=== PATIENT | female | born 1945 | race Caucasian/White ===

== ENCOUNTER → 2016-11-07 | Outpatient (CLI) | payer MEDICARE ==
--- NOTE | 2016-11-07 11:24 | USB ---
Reason for exam: additional evaluation requested from abnormal screening. History: Patient is postmenopausal and has history of other cancer at age 56. Family history of breast cancer in paternal cousin at age 58, breast cancer in maternal cousin at age 58, breast cancer in maternal aunt, and breast cancer in paternal aunt at age 60. Took estrogen for 3 years beginning at age 46. Physical Findings: Nurse did not find any significant physical abnormalities on exam. US Breast Workup RT Right breast ultrasound including all four quadrants, the retroareolar region and axilla demonstrates no cystic or solid lesion seen. Dense tissue noted. These results were verbally communicated with the patient and result sheet given to the patient on 11/07/16. ASSESSMENT: Negative, BI-RAD 1 RECOMMENDATION: Return to routine screening mammogram schedule for both breasts.
== END | disposition home or self-care (01) ==
LOC: RADUSWWP 09:52
PROVIDERS: ATTEND Internal Medicine Geriatric Medicine
DX: R92.8 Other abnormal and inconclusive findings on diagnostic imaging of breast (principal)

== ENCOUNTER → 2017-11-20 | Outpatient (CLI) | payer MEDICARE ==
--- NOTE | 2017-11-22 08:03 | MM ---
Reason for exam: screening (asymptomatic). Last mammogram was performed 1 year and 1 month ago. History: Patient is postmenopausal and has history of other cancer at age 56. Family history of breast cancer in paternal cousin at age 58, breast cancer in maternal cousin at age 58, breast cancer in maternal aunt, and breast cancer in paternal aunt at age 60. Took estrogen for 3 years beginning at age 46. Physical Findings: A clinical breast exam by your physician is recommended on an annual basis and results should be correlated with mammographic findings. MG 3D Screening Mammo W/Cad Bilateral CC and MLO view(s) were taken. Prior study comparison: November 07, 2016, right breast US breast workup RT. October 30, 2016, bilateral MG 3d screening mammo w/cad. October 17, 2015, bilateral MG screening mammo w CAD. August 06, 2013, bilateral digital screening mammo w/CAD. December 12, 2011, bilateral digital screening mammo w/CAD. The breast tissue is heterogeneously dense. This may lower the sensitivity of mammography. Stable asymmetric density posterior central right breast MLO view. No significant changes when compared with prior studies. ASSESSMENT: Negative, BI-RAD 1 RECOMMENDATION: Routine screening mammogram of both breasts in 1 year.
== END | disposition home or self-care (01) ==
LOC: RADMAMWWP 13:58
PROVIDERS: ATTEND Internal Medicine Geriatric Medicine
DX: Z12.31 Encounter for screening mammogram for malignant neoplasm of breast (principal)
CPT/HCPCS: 77063; 77067

== ENCOUNTER → 2019-11-24 | Outpatient (CLI) | payer MEDICARE ==
--- NOTE | 2019-11-24 11:15 | BD ---
EXAMINATION TYPE: Axial Bone Density DATE OF EXAM: 11/24/2019 COMPARISON: 2016 CLINICAL HISTORY: Postmenopausal female with history of osteoporosis Height: 62 inches Weight: 149 FRAX RISK QUESTIONS: Alcohol (3 or more units per day): no Family History (Parent hip fracture): no Glucocorticoids (More than 3mos): no (Ex: prednisone, prednisolone, methylprednisolone, dexamethasone, and hydrocortisone). History of Fracture in Adulthood: yes Secondary Osteoporosis: 1. Type 1 Diabetes: no 2. Hyperthyroidism: no 3. Menopause before 45: no 4. Malnutrition: no 5. Chronic liver disease: no Rheumatoid Arthritis: no Current Tobacco Use: no RISK FACTORS HISTORY OF: Family History of Osteoporosis: unknown Active: yes Diet low in dairy products/other sources of calcium: yes Postmenopausal woman: yes Take estrogen and/or progesterone medications: not now How lon-49 Lost more than 2 inches in height since high school: no Frequent falls: no Poor Health: no Hyperparathyroidism: no Adrenal Insufficiency: no MEDICATIONS: Prednisone or other steroids: no Thyroid Medications: no Osteoporosis Medications: no Additional Medications: calcium/vitamin D, cholesterol med ; joint supplements Additional History: bilateral knee replacements; tethered spinal cord EXAM MEASUREMENTS: Bone mineral densitometry was performed using the [employer]. Bone mineral density as measured about the Lumbar spine is: ----- L1-L4(G/cm2): 1.019 T Score Values are as follows: ----- L2: -1.4 ----- L3: -1.3 ----- L4: -1.4 ----- L1-L4: -1.3 Bone mineral density has: Increased 0.7% since study of: 10/30/2016 Bone mineral density about the R hip (g/cm2): 0.912 Bone mineral density about the L hip (g/cm2): 0.849 T Score values are as follows: -----R Neck: -0.9 -----L Neck: -1.4 -----R Total: -0.8 -----L Total: -0.6 Bone mineral density has: Decreased -0.5% since study of: 10/30/2016 IMPRESSION: Osteopenia (T Score between -2.5 and -1) redemonstrated femoral neck level left hip and overall in th e low back. Bone density fairly stable from prior. There remains slightly increased risk of fracture and the patient may be considered for treatment. Re-Screen 2-5 years. NOTE: T-SCORE=SD OF THE YOUNG ADULT MEAN.
--- NOTE | 2019-11-25 09:53 | MM ---
Reason for exam: screening (asymptomatic). Last mammogram was performed 1 year ago. History: Patient is postmenopausal and has history of other cancer at age 56. Family history of breast cancer in paternal cousin at age 58, breast cancer in maternal cousin at age 58, breast cancer in maternal aunt, and breast cancer in paternal aunt at age 60. Took estrogen for 3 years beginning at age 46. Physical Findings: A clinical breast exam by your physician is recommended on an annual basis and results should be correlated with mammographic findings. MG 3D Screening Mammo W/Cad Bilateral CC and MLO view(s) were taken. Prior study comparison: November 21, 2018, bilateral MG 3d screening mammo w/cad. November 20, 2017, bilateral MG 3d screening mammo w/cad. The breast tissue is heterogeneously dense. This may lower the sensitivity of mammography. Benign appearing bilateral calcifications. No significant changes when compared with prior studies. ASSESSMENT: Benign, BI-RAD 2 RECOMMENDATION: Routine screening mammogram of both breasts in 1 year.
== END | disposition home or self-care (01) ==
LOC: RADMAMWWP 09:54
PROVIDERS: ATTEND Internal Medicine Geriatric Medicine
DX: Z12.31 Encounter for screening mammogram for malignant neoplasm of breast (principal); M85.80 Other specified disorders of bone density and structure, unspecified site
CPT/HCPCS: 77063; 77067; 77080

== ENCOUNTER → 2019-12-12 | Outpatient (CLI) | payer MEDICARE ==
--- NOTE | 2019-12-14 10:52 | CT ---
EXAMINATION TYPE: CT abdomen wo/w con DATE OF EXAM: 12/12/2019 COMPARISON: None INDICATION: Pancreatic cancer DLP: 744.20 mGycm, Automated exposure control for dose reduction was used. CONTRAST: 120 mL of Isovue 370. Study performed without Oral Contrast TECHNIQUE: Axial images were obtained from above the diaphragm to the iliac wings in the axial plane at 5 mm thick sections. Reconstructed images are reviewed on the computer in the coronal plane. Mares creas protocol was utilized with noncontrast and postcontrast and delayed imaging. FINDINGS: Limited CT sections are obtained the lung bases. The lung bases are clear. No suspicious pleural ef fusions are evident. CT ABDOMEN: Liver: There is a 1.1 cm area which is hypointense on precontrast imaging has some rapid enhancement in the posterior right upper lobe of the liver. This has an atypical enhancement pattern for hemangio ma. Series 11 image 32, series 8 image 44. Consider MRI liver with contrast to evaluate for possible metastasis. Liver otherwise appears unremarkable. Spleen: Normal Pancreas: No suspicious hypoechoic or abnormal enhancing lesions within the pancreas is evident. No p ancreatic duct dilatation or cut off sign is evident. No suspicious dilated common bile duct is evide nt. MRI may be more sensitive for evaluation. Adrenal glands: The adrenal glands are normal. Gallbladder: Normal Kidneys: No masses are evident. No hydronephrosis is present. No cysts are present. Delayed images were obtained through the kidneys, which remain unremarkable. Aorta: Vascular calcification is within the aorta. Inferior vena cava: Normal. Bowel: Loops of bowel within the abdomen and upper pelvis are normal. Loops of bowel which lack o ral contrast limiting their evaluation. Appendix: Normal as visualized. IMPRESSIONS: 1. Patient's reported pancreatic cancer is not identified on the current exam. If there are outside comparison films these may be useful. MRI may be more sensitive for evaluation. 2. Abnormal 1.4 cm enhancement in the posterior upper right lobe liver. Additional evaluation with co ntrast MRI is recommended.
== END | disposition home or self-care (01) ==
LOC: RADCTMAIN 12:49
PROVIDERS: ATTEND Internal Medicine Geriatric Medicine
DX: R93.2 Abnormal findings on diagnostic imaging of liver and biliary tract (principal)
CPT/HCPCS: 74170; Q9967

== ENCOUNTER → 2020-01-13 | Outpatient (CLI) | payer MEDICARE ==
--- NOTE | 2020-01-13 09:52 | US ---
EXAMINATION TYPE: US liver DATE OF EXAM: 01/13/2020 COMPARISON: CT abdomen pelvis dated 12/12/2019 CLINICAL HISTORY: R93.2 ABN FINDINGS ON DIAGNOSTIC IMAGES OF LIVER. 1.4cm lesion noted on recent CT w ithin liver EXAM MEASUREMENTS: Liver Length: 12.0 cm Gallbladder Wall: 0.2 cm CBD: 0.4 cm Right Kidney: 9.4 x 4.5 x 5.1 cm Pancreas: wnl as visualized. Liver: 1.7cm right posterior lobe hyperechoic lesion, possible hemangioma correlating with the CT of 12/12/2019 . Gallbladder: wnl Evidence for sonographic Mackey's sign: no CBD: wnl Right Kidney: Obscuration of the lower pole by overlying bowel gas, otherwise unremarkable. IMPRESSION: Together CT findings on the exam of 12/12/2019 and sonographic findings on today's exam fav or a 1.7 cm benign hepatic hemangioma.
== END | disposition home or self-care (01) ==
LOC: RADUSWWP 09:12
PROVIDERS: ATTEND Internal Medicine Geriatric Medicine
DX: R93.2 Abnormal findings on diagnostic imaging of liver and biliary tract (principal)
CPT/HCPCS: 76705

== ENCOUNTER → 2021-02-23 | Outpatient (CLI) | payer MEDICARE ==
--- NOTE | 2021-02-27 13:34 | MM ---
Reason for exam: screening (asymptomatic). Last mammogram was performed 1 year and 3 months ago. History: Patient is postmenopausal and has history of other cancer at age 56. Family history of breast cancer in paternal cousin at age 58, breast cancer in maternal cousin at age 58, breast cancer in maternal aunt, and breast cancer in paternal aunt at age 60. Took estrogen for 3 years beginning at age 46. Physical Findings: A clinical breast exam by your physician is recommended on an annual basis and results should be correlated with mammographic findings. MG 3D Screening Mammo W/Cad Bilateral CC and MLO view(s) were taken. Prior study comparison: November 24, 2019, bilateral MG 3d screening mammo w/cad. November 21, 2018, bilateral MG 3d screening mammo w/cad. The breast tissue is heterogeneously dense. This may lower the sensitivity of mammography. Stable benign calcifications. There is no discrete abnormality. No significant changes when compared with prior studies. ASSESSMENT: Benign, BI-RAD 2 RECOMMENDATION: Routine screening mammogram of both breasts in 1 year.
== END | disposition home or self-care (01) ==
LOC: RADMAMWWP 10:09
PROVIDERS: ATTEND Internal Medicine Geriatric Medicine
DX: Z12.31 Encounter for screening mammogram for malignant neoplasm of breast (principal); Z80.3 Family history of malignant neoplasm of breast; Z78.0 Asymptomatic menopausal state
CPT/HCPCS: 77063; 77067

== ENCOUNTER → 2022-02-26 | Outpatient (CLI) | payer MEDICARE ==
--- NOTE | 2022-02-27 11:25 | MM ---
Reason for exam: screening (asymptomatic). Last mammogram was performed 1 year ago. History: Patient is postmenopausal and has history of other cancer at age 56. Family history of breast cancer in paternal cousin at age 58, breast cancer in maternal cousin at age 58, breast cancer in maternal aunt, and breast cancer in paternal aunt at age 60. Took estrogen for 3 years beginning at age 46. Physical Findings: A clinical breast exam by your physician is recommended on an annual basis and results should be correlated with mammographic findings. MG 3D Screening Mammo W/Cad Bilateral CC and MLO view(s) were taken. Prior study comparison: February 23, 2021, bilateral MG 3d screening mammo w/cad. November 24, 2019, bilateral MG 3d screening mammo w/cad. The breast tissue is heterogeneously dense. This may lower the sensitivity of mammography. There are benign appearing round, dystrophic calcifications bilaterally. There is no discrete abnormality. ASSESSMENT: Benign, BI-RAD 2 RECOMMENDATION: Routine screening mammogram of both breasts in 1 year.
== END | disposition home or self-care (01) ==
LOC: RADMAMWWP 12:18
PROVIDERS: ATTEND Internal Medicine Geriatric Medicine
DX: Z12.31 Encounter for screening mammogram for malignant neoplasm of breast (principal)
CPT/HCPCS: 77063; 77067

== ENCOUNTER → 2023-02-27 | Outpatient (CLI) | payer MEDICARE ==
--- NOTE | 2023-02-28 09:06 | MM ---
Reason for Exam: Screening (asymptomatic). Last screening mammogram was performed 12 month(s) ago. Patient History: Menarche at age 13. First Full-Term at age 27. Postmenopausal. Patient has history of breast feeding. Estrogen for 3 years from age 46 until age 49. Paternal cousin had breast cancer, age 58. Maternal cousin had breast cancer, age 58. Paternal aunt had breast cancer, age 60. Maternal aunt had breast cancer. Maternal cousin had ovarian cancer at or over age 50. Risk Values: Vero 5 year model risk: 2.0%. NCI Lifetime model risk: 4.0%. Prior Study Comparison: 10/30/2016 Bilateral Screening Mammogram, [facility]. 11/20/2017 Bilateral Screening Mammogram, [facility]. 11/21/2018 Bilateral Screening Mammogram, [facility]. 11/24/2019 Bilateral Screening Mammogram, [facility]. 02/23/2021 Bilateral Screening Mammogram, [facility]. 02/26/2022 Bilateral Screening Mammogram, [facility]. Tissue Density: The breast tissue is heterogeneously dense. This may lower the sensitivity of mammography. Findings: Analyzed By CAD. There is no suspicious group of microcalcifications or new suspicious mass in either breast. Overall Assessment: Benign, BI-RAD 2 Management: Screening Mammogram of both breasts in 1 year. A clinical breast exam by your physician is recommended on an annual basis and results should be correlated with mammographic findings. Electronically signed and approved by: Ghulam Campbell M.D. Radiologis
--- NOTE | 2023-02-28 19:27 | BD ---
EXAMINATION TYPE: Axial Bone Density DATE OF EXAM: 02/27/2023 CLINICAL HISTORY: 77 years old Female. ICD-10 CODE: M81.0 OSTEOPOROSIS Height: 61 in Weight: 141 lbs FRAX RISK QUESTIONS: History of Fracture in Adulthood: rt tib/fib fx age 36 Active: yes Diet low in dairy products/other sources of calcium: yes Postmenopausal woman: age 51 Take estrogen and/or progesterone medications: not now How lon years MEDICATIONS: Additional Medications: glucosamine chondroitin, calcium, vit d, statin, coqu10, sleeping pill EXAM MEASUREMENTS: Bone mineral densitometry was performed using the [employer]. Bone mineral density as measured about the Lumbar spine is: ----- L1-L4(G/cm2): 1.031 T Score Values are as follows: ----- L1: -1.0 ----- L2: -1.3 ----- L3: -1.6 ----- L4: -1.2 ----- L1-L4: -1.2 Z Score Values are as follows: ----- L1: 0.8 ----- L2: 0.5 ----- L3: 0.2 ----- L4: 0.6 ----- L1-L4: 0.6 Bone mineral density has: Increased 1.2% since study of: 11/24/2019 Bone mineral density about the R hip (g/cm2): 0.865 Bone mineral density about the L hip (g/cm2): 0.891 T Score values are as follows: -----R Neck: -1.5 -----L Neck: -1.6 -----R Total: -1.1 -----L Total: -0.9 Z Score values are as follows: -----R Neck: 0.5 -----L Neck: 0.4 -----R Total: 0.7 -----L Total: 0.9 Bone mineral density has: Decreased -4.7% since study of: 11/24/2019 FRAX%s: The graph provided illustrates a 18.5% chance for a major osteoporotic fx and a 3.8% chance f or the hips probability for fx in 10 years time. IMPRESSION: Osteopenia (T Score between -2.5 and -1). There is slightly increased risk of fracture and the patient may be considered for treatment. Re-Screen 2-5 years. NOTE: T-SCORE=SD OF THE YOUNG ADULT MEAN.
== END | disposition home or self-care (01) ==
LOC: RADMAMWWP 11:12
PROVIDERS: ATTEND Internal Medicine Geriatric Medicine
DX: Z12.31 Encounter for screening mammogram for malignant neoplasm of breast (principal); M81.0 Age-related osteoporosis without current pathological fracture; M85.89 Other specified disorders of bone density and structure, multiple sites; Z78.0 Asymptomatic menopausal state; Z80.3 Family history of malignant neoplasm of breast
CPT/HCPCS: 77063; 77067; 77080

== ENCOUNTER → 2024-03-13 | Outpatient (CLI) | payer MEDICARE ==
--- NOTE | 2024-03-16 15:10 | MM ---
Reason for Exam: Screening (asymptomatic). Last mammogram was performed 1 year(s) and 1 month(s) ago. Patient History: Menarche at age 13. First Full-Term at age 27. Postmenopausal. Patient has history of breast feeding. Estrogen for 3 years from age 46 until age 49. Paternal cousin had breast cancer, age 58. Maternal cousin had breast cancer, age 58. Paternal aunt had breast cancer, age 60. Maternal aunt had breast cancer. Maternal cousin had ovarian cancer at or over age 50. Risk Values: Vreo 5 year model risk: 1.9%. NCI Lifetime model risk: 3.7%. Prior Study Comparison: 02/23/2021 Bilateral Screening Mammogram, [facility]. 02/26/2022 Bilateral Screening Mammogram, [facility]. 02/27/2023 Bilateral MG 3D screening mammo w/cad, [facility]. Tissue Density: The breasts are heterogeneously dense, which may obscure small masses. Findings: Analyzed By CAD. Right breast: There is no suspicious group of microcalcifications or new suspicious mass. Left breast: There is no suspicious group of microcalcifications or new suspicious mass. Overall Assessment: Negative, BI-RAD 1 Management: Screening Mammogram of both breasts in [address] [facility] will attempt to contact patient to return for supplemental views and ultrasound if indicated. Patient should continue monthly self-breast exams. A clinical breast exam by your physician is recommended on an annual basis. This exam should not preclude additional follow-up of suspicious palpable abnormalities. Note on Vero scores and lifetime risk: 1. A Vero score greater than 3% is considered moderate risk. If this is the case, consider specialist referral to assess eligibility for a risk reducing agent. 2. If overall lifetime risk for the development of breast cancer is 20% or higher, the patient may qualify for future screening with alternating mammogram and breast MRI. Electronically signed and approved by: Rafael Mccain DO
== END | disposition home or self-care (01) ==
LOC: RADMAMWWP 10:52
PROVIDERS: ATTEND Internal Medicine Geriatric Medicine
DX: Z12.31 Encounter for screening mammogram for malignant neoplasm of breast (principal); Z78.0 Asymptomatic menopausal state; Z80.3 Family history of malignant neoplasm of breast
CPT/HCPCS: 77063; 77067

== ENCOUNTER → 2024-04-15 | Outpatient (CLI) | payer MEDICARE | END | disposition home or self-care (01) | LOC: LABWHC1 12:01 | PROVIDERS: ATTEND Internal Medicine Gastroenterology | DX: R19.7 Diarrhea, unspecified (principal) | CPT/HCPCS: 36415; 85652; 86140 ==

== ENCOUNTER 2025-04-28 06:49 | Inpatient (IN) | payer MEDICARE ==
[2025-04-28 07:40] LABS: Basophils # (A) 0.05 10*3/uL (0.00-0.10); Basophils % (A) 0.4 %; Eosinophils # (A) 0.18 10*3/uL (0.04-0.35); Eosinophils % (A) 1.5 %; HCT 49.2 % (37.2-46.3); HGB 16.3 g/dL (12.0-15.0); Lymphocytes % (A) 12.2 %; MCH 31.1 pg (27.0-32.0); MCHC 33.1 g/dL (32.0-37.0); MCV 93.9 fL (80.0-97.0); Mean Platelet Volume 11.3 fL (9.5-12.2); Monocytes # (A) 0.93 10*3/uL (0.20-1.00); Monocytes % (A) 7.6 %; Neutrophils # (A) 9.57 10*3/uL (1.80-7.70); Neutrophils % (A) 77.8 %; Platelet Count 218 10*3/uL (140-440); RBC 5.24 10*6/uL (4.10-5.20); WBC 12.29 10*3/uL (4.50-10.00)
[2025-04-28 07:51] LABS: ALT 14 U/L (4-34); AST 25 U/L (14-36); African American GFR (CKD) >90 (>60 ml/min/1.73 sqM); Albumin 4.7 g/dL (3.5-5.0); Alkaline Phosphatase 100 U/L (38-126); Anion Gap 9 mmol/L; Blood Urea Nitrogen 20 mg/dL (7-17); Calcium 9.6 mg/dL (8.4-10.2); Carbon Dioxide 24 mmol/L (22-30); Chloride 105 mmol/L (98-107); Glucose 95 mg/dL (74-99); Lipase 102 U/L (23-300); Non-African American GFR(CKD) 79 (>60 ml/min/1.73 sqM); Potassium 4.6 mmol/L (3.5-5.1); Sodium 138 mmol/L (137-145); Total Bilirubin 1.1 mg/dL (0.2-1.3); Total Protein 7.5 g/dL (6.3-8.2)
[2025-04-28 07:54] LABS: Appearance,Urine Clear (Clear); Bilirubin,Urine Negative (Negative); Blood,Urine Negative (Negative); Color,Urine Colorless; Glucose,Urine (UA) Negative (Negative); Ketones,Urine Negative (Negative); Leukocyte Esterase,Urine Negative (Negative); Nitrite,Urine Negative (Negative); Protein,Urine Negative (Negative); Specific Gravity,Urine 1.009 (1.001-1.035); Urobilinogen,Urine <2.0 mg/dL (<2.0)
--- NOTE | 2025-04-28 09:22 | CT ---
EXAMINATION TYPE: CT abdomen pelvis w con DATE OF EXAM: 04/28/2025 8:53 AM COMPARISON: 12/12/2019 CLINICAL INDICATION: Female, 79 years old with history of abd pain; ABD pain TECHNIQUE: CT of the abdomen and pelvis after IV contrast. Delayed images through the kidneys and cor onal/sagittal reconstructions performed. Contrast used:100ML mL of Isovue 300 with IV Contrast, Oral contrast used: without Oral Contrast CT DLP: 715.1 mGycm, Automated exposure control for dose reduction was used. FINDINGS: LOWER CHEST: Calcified pleural plaques visualized right lower lung with some strandy atelectasis. Hea rt upper limits of normal in size. ABDOMEN LIVER: Unremarkable GALLBLADDER AND BILE DUCTS: Unremarkable. PANCREAS: Unremarkable. SPLEEN: Unremarkable. ADRENAL GLANDS: Unremarkable. KIDNEYS AND URETERS: Bilateral renal parapelvic cysts measuring up to 1.8 cm. Symmetric uptake and ex cretion of contrast from both kidneys. A small approximately 1 cm cortical cyst medial left kidney is unchanged. PELVIS BLADDER: No evidence for wall thickening or mass given limitations of exam. REPRODUCTIVE: Uterus anteverted. Both ovaries are visualized. Suspect a couple calcified anterior lef t-sided subserosal fibroids measuring up to 1.1 cm. ABDOMEN & PELVIS STOMACH AND BOWEL: 4.1 cm diverticulum of the third portion of the duodenum projecting towards the pa ncreatic head region. No evidence of bowel obstruction. Mild scattered stool. Normal appendix. There is left-sided colonic diverticulosis. Moderate circumferential thickening with inflammatory pericolon ic fat stranding along the mid sigmoid colon, axial image 57. PERITONEUM/RETROPERITONEUM: No evidence of pneumoperitoneum or free fluid. VASCULATURE: No evidence of aortic aneurysm. MUSCULOSKELETAL: There is prominence of the spinal canal at the level of the sacrum. Partially lumbar ized S1. Moderate to advanced degenerative disc disease lower thoracic and upper lumbar spine. Degene rative grade 1 retrolisthesis T12-L1, L1-L2, L2-L3. LYMPH NODES: No gross evidence for lymphadenopathy. SOFT TISSUE/ABDOMINAL WALL: There is a lesion of the posterior pelvic floor/levator ani musculature m easuring 4.8 cm wide partially cystic component measuring 3.6 cm and a solid appearing component jesus uring 1.7 cm. The exact etiology is unclear. IMPRESSION: 1. Left sided colonic diverticulosis. Exam positive for acute diverticulitis along the mid sigmoid c olon. Associated mild to moderate inflammation. No abscess or free air. 2. Incidental complex cystic mass of the posterior pelvic floor measuring 4.8 cm. 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 Teratoma or associated congenital sacrococcygeal abnormality is not entirely excluded at this time given prominence to the spinal canal at the level of the sacrum. Consider lumbar/sacral MRI for more detailed characterization. Possibility of other masses are not excluded at this time. Co nsider specialist referral for subsequent follow-up. [facility], , 04/28/2025 9:20 AM
[2025-04-28] MEDS ORDERED: NALOXONE 0.4 MG/ML 1 ML VIAL IV PRN (10:03)
[2025-04-28] MEDS ORDERED: ACETAMINOPHEN TAB 325 MG TAB PO PRN (10:03)
[2025-04-28] MEDS ORDERED: ONDANSETRON 4 MG/2 ML VIAL IVP PRN (10:03)
--- NOTE | 2025-04-28 10:03 | ED ---
Abdominal Pain HPI - General Chief Complaint: Abdominal Pain Stated Complaint: Abd pain Time Seen by Provider: 04/28/25 06:57 Source: patient, RN notes reviewed Mode of arrival: ambulatory Limitations: no limitations - History of Present Illness Initial Comments: 79-year-old female presents emergency department complaint of lower abdominal pain. Patient states she has had some soft stools for a while but the pain has been worsening crampy type pain in her lower abdomen. She denies any fevers or chills no chest pain states sometimes the pain becomes unbearable she does have some urinary frequency dysuria denies any melanotic stools no hematochezia. Denies any coffee-ground emesis - Related Data Home Medications Medication Instructions Recorded Confirmed Calcium (Unknown Strength) 1 dose PO DAILY 04/28/25 04/28/25 Dicyclomine [Bentyl] 10 mg PO QID 04/28/25 04/28/25 Temazepam [Restoril] 15 mg PO HS 04/28/25 04/28/25 Zinc (Unknown Strength) 1 dose PO DAILY 04/28/25 04/28/25 Allergies Allergy/AdvReac Type Severity Reaction Status Date / Time No Known Allergies Allergy Verified 04/28/25 09:47 Review of Systems ROS Statement: Those systems with pertinent positive or pertinent negative responses have been documented in the HPI. ROS Other: All systems not noted in ROS Statement are negative. Past Medical History Past Medical History: Hyperlipidemia Past Surgical History: Orthopedic Surgery Additional Past Surgical History / Comment(s): Bilat knee replacement Past Psychological History: No Psychological Hx Reported Smoking Status: Never smoker Past Alcohol Use History: Occasional Past Drug Use History: None Reported General Exam Limitations: no limitations General appearance: alert, in no apparent distress Head exam: Present: atraumatic, normocephalic, normal inspection Respiratory exam: Present: normal lung sounds bilaterally. Absent: respiratory distress, wheezes, rales, rhonchi, stridor Cardiovascular Exam: Present: regular rate, normal rhythm, normal heart sounds. Absent: systolic murmur, diastolic murmur, rubs, gallop, clicks GI/Abdominal exam: Present: soft, tenderness, normal bowel sounds. Absent: distended, guarding, rebound, rigid Back exam: Absent: CVA tenderness (R), CVA tenderness (L) Neurological exam: Present: alert, oriented X3 Skin exam: Present: warm, dry, intact, normal color. Absent: rash Course Vital Signs 04/28/25 04/28/25 06:52 09:32 Temperature 98.1 F Pulse Rate 82 64 Respiratory 18 16 Rate Blood Pressure 138/84 122/77 O2 Sat by Pulse 98 99 Oximetry Medical Decision Making - Medical Decision Making Was pt. sent in by a medical professional or institution (SOLEDAD Richards, MARKETING AND OUTREACH COORDINATOR, urgent care, hospital, or jail...) When possible be specific @ -No Did you speak to anyone other than the patient for history (EMS, parent, family, police, friend...)? What history was obtained from this source @ -No Did you review nursing and triage notes (agree or disagree)? Why? @ -I reviewed and agree with nursing and triage notes Were old charts reviewed (outside hosp., previous admission, EMS record, old EKG, old radiological studies, urgent care reports/EKG's, jail records)? Report findings @ -No old charts were reviewed Differential Diagnosis (chest pain, altered mental status, abdominal pain women, abdominal pain men, vaginal bleeding, weakness, fever, dyspnea, syncope, headache, dizziness, GI bleed, back pain, seizure, CVA, palpatations, mental health, musculoskeletal)? @ -Differential Abdominal Pain Women: Appendicitis, Cholecystitis, diverticulosis, ischemic bowel, pancreatitis, hepatitis, UTI, gastroenteritis, AAA, incarcerated hernia, bowel obstruction, constipation, inflammatory bowel, hepatitis, peptic ulcer disease, splenic infarction, perforated viscus, vulvitis, ovarian torsion, PID, kidney stone, placenta abruption, this is not meant to be an all-inclusive list EKG interpreted by me (3pts min.). @ -None X-rays interpreted by me (1pt min.). @ -None done CT interpreted by me (1pt min.). @ -CT of abdomen pelvis showing evidence of diverticulitis diffuse inflammatory changes no abscess perforation cysts of cystic area recommend MRI U/S interpreted by me (1pt. min.). @ -None done What testing was considered but not performed or refused? (CT, X-rays, U/S, labs)? Why? @ -None What meds were considered but not given or refused? Why? @ -None Did you discuss the management of the patient with other professionals (professionals i.e. Dr., PA, MARKETING AND OUTREACH COORDINATOR, lab, RT, psych nurse, mental health social worker, office manager receptionist, teacher, multisensor intelligence officer, outsole caser)? Give summary @ -[EMH for admission Was smoking cessation discussed for >3mins.? @ -No Was critical care preformed (if so, how long)? @ -No Were there social determinants of health that impacted care today? How? (Home lessness, low income, unemployed, alcoholism, drug addiction, transportation, low edu. Level, literacy, decrease access to med. care, half-way, rehab)? @ -No Was there de-escalation of care discussed even if they declined (Discuss DNR or withdrawal of care, Hospice)? DNR status @ -No What co-morbidities impacted this encounter? (DM, HTN, Smoking, COPD, CAD, Cancer, CVA, ARF, Chemo, Hep., AIDS, mental health diagnosis, sleep apnea, morbid obesity)? @ -None Was patient admitted / discharged? Hospital course, mention meds given and route, prescriptions, significant lab abnormalities, going to OR and other pertinent info. @ -Admitted patient presented for abdominal pain, diverticulitis. Patient be admitted for IV antibiotics, patient's family questing Dr. Gutierrez for consult. Undiagnosed new problem with uncertain prognosis? @ -No Drug Therapy requiring intensive monitoring for toxicity (Heparin, Nitro, Insulin, Cardizem)? @ -No Were any procedures done? @ -No Diagnosis/symptom? @ -Diverticulitis Acute, or Chronic, or Acute on Chronic? @Acute Uncomplicated (without systemic symptoms) or Complicated (systemic symptoms)? @ -Complicated Side effects of treatment? @ -No Exacerbation, Progression, or Severe Exacerbation? @ -No Poses a threat to life or bodily function? How? (Chest pain, [place], [place], pneumonia, PE, COPD, DKA, ARF, appy, cholecystitis, CVA, Diverticulitis, Homicidal, Suicidal, threat to staff... and all critical care pts) @ -No - Lab Data Result diagrams: 04/28/25 07:32 04/28/25 07:32 Lab Results 04/28/25 04/28/25 04/28/25 Range/Units 07:32 07:32 07:32 WBC 12.29 H (4.50-10.00) 10*3/uL RBC 5.24 H (4.10-5.20) 10*6/uL Hgb 16.3 H (12.0-15.0) g/dL Hct 49.2 H (37.2-46.3) % MCV 93.9 (80.0-97.0) fL MCH 31.1 (27.0-32.0) pg MCHC 33.1 (32.0-37.0) g/dL Plt Count 218 (140-440) 10*3/uL MPV 11.3 (9.5-12.2) fL Immature Gran % (Auto) 0.5 % Neutrophils % 77.8 % Lymphocytes % 12.2 % Monocytes % 7.6 % Eosinophils % 1.5 % Basophils % 0.4 % Immature Gran # 0.06 H (0.00-0.04) 10*3/uL Neutrophils # 9.57 H (1.80-7.70) 10*3/uL Lymphocytes # 1.50 (0.90-5.00) 10*3/uL Monocytes # 0.93 (0.20-1.00) 10*3/uL Eosinophils # 0.18 (0.04-0.35) 10*3/uL Basophils # 0.05 (0.00-0.10) 10*3/uL Sodium 138 (137-145) mmol/L Potassium 4.6 (3.5-5.1) mmol/L Chloride 105 (98-107) mmol/L Carbon Dioxide 24 (22-30) mmol/L Anion Gap 9 mmol/L BUN 20 H (7-17) mg/dL Creatinine 0.73 (0.52-1.04) mg/dL Est GFR (CKD-EPI)AfAm >90 (>60 ml/min/1.73 sqM) Est GFR (CKD-EPI)NonAf 79 (>60 ml/min/1.73 sqM) Glucose 95 (74-99) mg/dL Plasma Lactic Acid Aldo 1.1 (0.7-2.0) mmol/L Calcium 9.6 (8.4-10.2) mg/dL Total Bilirubin 1.1 (0.2-1.3) mg/dL AST 25 (14-36) U/L ALT 14 (4-34) U/L Alkaline Phosphatase 100 (38-126) U/L Total Protein 7.5 (6.3-8.2) g/dL Albumin 4.7 (3.5-5.0) g/dL Lipase 102 (23-300) U/L Urine Color Urine Appearance (Clear) Urine pH (5.0-8.0) Ur Specific Franklin (1.001-1.035) Urine Protein (Negative) Urine Glucose (UA) (Negative) Urine Ketones (Negative) Urine Blood (Negative) Urine Nitrite (Negative) Urine Bilirubin (Negative) Urine Urobilinogen (<2.0) mg/dL Ur Leukocyte Esterase (Negative) 04/28/25 Range/Units 07:41 WBC (4.50-10.00) 10*3/uL RBC (4.10-5.20) 10*6/uL Hgb (12.0-15.0) g/dL Hct (37.2-46.3) % MCV (80.0-97.0) fL MCH (27.0-32.0) pg MCHC (32.0-37.0) g/dL Plt Count (140-440) 10*3/uL MPV (9.5-12.2) fL Immature Gran % (Auto) % Neutrophils % % Lymphocytes % % Monocytes % % Eosinophils % % Basophils % % Immature Gran # (0.00-0.04) 10*3/uL Neutrophils # (1.80-7.70) 10*3/uL Lymphocytes # (0.90-5.00) 10*3/uL Monocytes # (0.20-1.00) 10*3/uL Eosinophils # (0.04-0.35) 10*3/uL Basophils # (0.00-0.10) 10*3/uL Sodium (137-145) mmol/L Potassium (3.5-5.1) mmol/L Chloride (98-107) mmol/L Carbon Dioxide (22-30) mmol/L Anion Gap mmol/L BUN (7-17) mg/dL Creatinine (0.52-1.04) mg/dL Est GFR (CKD-EPI)AfAm (>60 ml/min/1.73 sqM) Est GFR (CKD-EPI)NonAf (>60 ml/min/1.73 sqM) Glucose (74-99) mg/dL Plasma Lactic Acid Aldo (0.7-2.0) mmol/L Calcium (8.4-10.2) mg/dL Total Bilirubin (0.2-1.3) mg/dL AST (14-36) U/L ALT (4-34) U/L Alkaline Phosphatase (38-126) U/L Total Protein (6.3-8.2) g/dL Albumin (3.5-5.0) g/dL Lipase (23-300) U/L Urine Color Colorless Urine Appearance Clear (Clear) Urine pH 6.0 (5.0-8.0) Ur Specific Franklin 1.009 (1.001-1.035) Urine Protein Negative (Negative) Urine Glucose (UA) Negative (Negative) Urine Ketones Negative (Negative) Urine Blood Negative (Negative) Urine Nitrite Negative (Negative) Urine Bilirubin Negative (Negative) Urine Urobilinogen <2.0 (<2.0) mg/dL Ur Leukocyte Esterase Negative (Negative) Disposition Clinical Impression: Diverticulitis Disposition: ADMITTED IP TO THIS [facility] Condition: Fair Referrals: Carlos Abarca MD [Primary Care Provider] - 1-2 days Time of Disposition: 10:03
--- NOTE | 2025-04-28 10:11 | P.HPIM ---
History of Present Illness This is a pleasant 79 years old female with no past medical history. Presents because of abdominal pain and diarrhea. Patient states that she has diarrhea for about 1 month however she started having lower abdominal pain which felt like moderate pain in the lower abdomen nonradiating comes and goes. Associated with diarrhea for about 1 month. Patient does not describe it as diarrhea but rather than soft stool. And then she has the symptoms of bloating and gas She denies vomiting but she has low appetite She states that last colonoscopy was more than 10 years ago. Denies smoking alcohol illicit drugs. Patient family requesting Dr. Leo for consult for her colon problem No fever Labs reviewed showing mild leukocytosis of 12.3 rest of labs unremarkable CT of the abdomen pelvis showing left-sided colonic diverticulosis with acute diverticulitis along the mid sigmoid colon. Also there is complex cystic mass in the posterior pelvic floor 4.8 cm. Patient was with antibiotics Zosyn started already in the emergency room Review of Systems Review of systems CONSTITUTIONAL: No fever, no malaise, no fatigue. HEENT: No recent visual problems or hearing problems. Denied any sore throat. CARDIOVASCULAR: No orthopnea, PND, no palpitations, no syncope. PULMONARY: No shortness of breath, no cough, no hemoptysis. GASTROINTESTINAL: no nausea, no vomiting,Normoactive bowel sounds. NEUROLOGICAL: No headaches, no weakness, no numbness. HEMATOLOGICAL: Denies any bleeding or petechiae. GENITOURINARY: Denies any burning micturition, frequency, or urgency. MUSCULOSKELETAL/RHEUMATOLOGICAL: Denies any joint pain, swelling, or any muscle pain. ENDOCRINE: Denies any polyuria or polydipsia. Past Medical History Past Medical History: Hyperlipidemia Past Surgical History: Orthopedic Surgery Additional Past Surgical History / Comment(s): Bilat knee replacement Past Psychological History: No Psychological Hx Reported Smoking Status: Never smoker Past Alcohol Use History: Occasional Past Drug Use History: None Reported Medications and Allergies Home Medications Medication Instructions Recorded Confirmed Type Calcium (Unknown Strength) 1 dose PO DAILY 04/28/25 04/28/25 History Dicyclomine [Bentyl] 10 mg PO QID 04/28/25 04/28/25 History Temazepam [Restoril] 15 mg PO HS 04/28/25 04/28/25 History Zinc (Unknown Strength) 1 dose PO DAILY 04/28/25 04/28/25 History Allergies Allergy/AdvReac Type Severity Reaction Status Date / Time No Known Allergies Allergy Verified 04/28/25 09:47 Physical Exam Vitals: Vital Signs Temp Pulse Resp BP Pulse Ox 04/28/25 09:32 64 16 122/77 99 04/28/25 06:52 98.1 F 82 18 138/84 98 Intake and Output 04/27/25 04/28/25 04/28/25 22:59 06:59 14:59 Other: Weight 68.039 kg GENERAL: The patient is alert and oriented x3, not in any acute distress. Well developed, well nourished. HEENT: Pupils are round and equally reacting to light. EOMI. No scleral icterus. No conjunctival pallor. Normocephalic, atraumatic. No pharyngeal erythema. No thyromegaly. CARDIOVASCULAR: S1 and S2 present. No murmurs, rubs, or gallops. PULMONARY: Chest is clear to auscultation, no wheezing , no crackles. -ABDOMEN: Soft, mild lower abdominal tenderness, nondistended, normoactive bowel sounds. No palpable organomegaly. MUSCULOSKELETAL: No joint swelling or deformity. EXTREMITIES: No cyanosis, clubbing, or pedal edema. NEUROLOGICAL: Gross neurological examination did not reveal any focal deficits. SKIN: No rashes. no petechiae. 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 Continue same treatment. Continue with symptomatic treatment. Resume home medication. Monitor labs and vitals. DVT and GI prophylaxis. Further recommendations as per clinical course of the patient DVT prophylaxis: Subcutaneous heparin GI Prophylaxis: Pepcid PT/OT: Pending Prognosis is guarded
[2025-04-28] MEDS: PIPERACILLIN-TAZOBACTAM 3.375 GM in SODIUM CHLORIDE 0.9% 100 ML IVPB SCH (10:46)
[2025-04-28] MEDS: SODIUM CHLORIDE 0.9% 1,000 ML IV SCH (10:48)
[2025-04-28] MEDS ORDERED: MORPHINE SULFATE 2 MG/ML SYRINGE IVP PRN (20:12)
[2025-04-28] MEDS ORDERED: TEMAZEPAM 15 MG CAP PO PRN (20:12)
[2025-04-28] MEDS: FAMOTIDINE 20 MG/2 ML VIAL IV SCH (21:58)
[2025-04-28] MEDS: HEPARIN SODIUM,PORCINE 5,000 UNIT/ML 1 ML VIAL SQ SCH (21:58)
[2025-04-29 08:02] LABS: Basophils # (A) 0.05 X 10*3/uL (0.00-0.10); Basophils % (A) 0.5 %; Eosinophils # (A) 0.22 X 10*3/uL (0.04-0.35); Eosinophils % (A) 2.1 %; HCT 40.1 % (37.2-46.3); HGB 12.9 g/dL (12.0-15.0); Lymphocytes # (A) 1.54 X 10*3/uL (0.90-5.00); Lymphocytes % (A) 14.5 %; MCH 30.4 pg (27.0-32.0); MCHC 32.2 g/dL (32.0-37.0); MCV 94.6 FL (80.0-97.0); Mean Platelet Volume 11.4 FL (9.5-12.2); Monocytes # (A) 1.01 X 10*3/uL (0.20-1.00); Monocytes % (A) 9.5 %; NRBC Per 100 WBC 0 X 10*3/uL (0.00-0.01); Neutrophils # (A) 7.75 X 10*3/uL (1.80-7.70); Platelet Count 245 X 10*3/uL (140-440); RBC 4.24 X 10*6/uL (4.10-5.20); RDW 13.1 % (11.5-14.5); WBC 10.61 X 10*3/uL (4.50-10.00)
--- NOTE | 2025-04-29 10:26 | P.PN ---
Subjective This is a pleasant 79 years old female with no past medical history. Presents because of abdominal pain and diarrhea. Patient states that she has diarrhea for about 1 month however she started having lower abdominal pain which felt like moderate pain in the lower abdomen nonradiating comes and goes. Associated with diarrhea for about 1 month. Tara clifford does not describe it as diarrhea but rather than soft stool. And then she has the symptoms of bloating and gas She denies vomiting but she has low appetite She states that last colonoscopy was more than 10 years ago. Denies smoking alcohol illicit drugs. Patient family requesting Dr. Leo for consult for her colon problem No fever Labs reviewed showing mild leukocytosis of 12.3 rest of labs unremarkable CT of the abdomen pelvis showing left-sided colonic diverticulosis with acute diverticulitis along the mid sigmoid colon. Also there is complex cystic mass in the posterior pelvic floor 4.8 cm. Patient was with antibiotics Zosyn started already in the emergency room 04/29 Patient doing well today. Her abdominal pain is minimal in the periumbilical area with mild tenderness no guarding Patient is having 2-4 mushy bowel movement daily, she feels better. Able to tolerate liquid diet and no vomiting No other new complaint. Patient still getting IV fluids. Surgery team to evaluate the patient today but she is improving and may be considered for discharge soon once cleared by surgery team Objective - Vital Signs Vital signs: Vital Signs Temp 98.4 F 04/29/25 08:32 Pulse 65 04/29/25 08:32 Resp 20 04/29/25 08:32 BP 146/76 04/29/25 08:32 Pulse Ox 95 04/29/25 08:32 FiO2 - Exam GENERAL: The patient is alert and oriented x3, not in any acute distress. Well developed, well nourished. HEENT: Pupils are round and equally reacting to light. EOMI. No scleral icterus. No conjunctival pallor. Normocephalic, atraumatic. No pharyngeal erythema. No th yromegaly. CARDIOVASCULAR: S1 and S2 present. No murmurs, rubs, or gallops. PULMONARY: Chest is clear to auscultation, no wheezing , no crackles. -ABDOMEN: Soft, mild periumbilical tenderness nondistended, normoactive bowel sounds. No palpable organomegaly. MUSCULOSKELETAL: No joint swelling or deformity. EXTREMITIES: No cyanosis, clubbing, or pedal edema. NEUROLOGICAL: Gross neurological examination did not reveal any focal deficits. SKIN: No rashes. no petechiae. 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 Continue same treatment. Continue with symptomatic treatment. Resume home medication. Monitor labs and vitals. DVT and GI prophylaxis. Further recommendations as per clinical course of the patient DVT prophylaxis: Subcutaneous heparin GI Prophylaxis: Pepcid PT/OT: Pending Prognosis is guarded
[2025-04-29 10:40] LABS: BUN/Creat Ratio 16.25 Ratio (12.00-20.00); Calcium 8.6 mg/dL (8.7-10.3); Carbon Dioxide 23.8 mmol/L (21.6-31.8); Chloride 108 mmol/L (96-109); Glucose 78 mg/dL (70-110); Potassium 4.9 mmol/L (3.5-5.5); Sodium 142 mmol/L (135-145)
--- NOTE | 2025-04-29 13:51 | P.GSCN ---
History of Present Illness Consult date: 04/29/25 History of present illness: CHIEF COMPLAINT: Abdominal pain HISTORY OF PRESENT ILLNESS: This is a 79-year-old female who presented the hospital with pain across the lower abdomen. Patient reports over the last 3 days she has been having a crampy abdominal pain in the lower abdomen. Patient was found to have evidence of diverticulitis on CT scan and started on antib iotics. She denies any prior history of diverticulitis. She denies any nausea vomiting or fevers. She reports her stools have been loose. She reports history of diarrhea for the last month. She reports taking Bentyl as prescribed by her GI doctor. Patient reports her last colonoscopy was 3 years ago. She has been getting Cologuard and the last one was about a year ago and it was negative. Surgical service consulted for diverticulitis. PAST MEDICAL HISTORY: See below PAST SURGICAL HISTORY: See below MEDICATIONS: See below ALLERGIES: See below SOCIAL HISTORY: No illicit drug use. REVIEW OF SYSTEMS: CONSTITUTIONAL: Denies fever or chills. HEENT: Denies blurred vision, vision changes, or eye pain. Denies hemoptysis CARDIOVASCULAR: Denies chest pain or pressure. RESPIRATORY: No shortness of breath. GASTROINTESTINAL: See HPI for pertinent findings HEMATOLOGIC: Denies bleeding disorders. GENITOURINARY: Denies any blood in urine or increased urinary frequency. SKIN: Denies pruitis. Denies rash. PHYSICAL EXAM: VITAL SIGNS: Reviewed GENERAL: Well-developed in no acute distress. HEENT: No sclera icterus. Extraocular movements grossly intact. Moist buccal mucosa. Head is atraumatic, normocephalic. No nasal drainage. ABDOMEN: Soft. Nondistended. Mild tenderness with palpation of the suprapubic area. No rebound or guarding. NEUROLOGIC: Alert and oriented. Cranial nerves II through XII grossly intact. LABORATORY DATA: WBC 12.29 down to 10.61 Hgb 12.9 platelets 245 Sodium 142 potassium 4.9 creatinine 0.8 IMAGING: CT scan abdomen pelvis reports left-sided colonic diverticulosis. Positive for acute diverticulitis along the mid sigmoid colon associate with mild to moderate inflammation. No abscess or free air. Incidental complex cystic mass of the posterior pelvic floor measuring 4.8 cm. 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 Teratoma or associated congenital sacrococcygeal abnormality is not entirely excluded. ASSESSMENT: 1. Acute sigmoid diverticulitis 2. 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 - Continue pain management - Continue IV fluids - Continue to monitor Physician Manager Statistical note has been reviewed by physician. Signing provider agrees with the documented findings, assessment, and plan of care. I have personally seen and examined the patient, reviewed the RETAIL AND PROMOTIONS COORDINATOR /PAs history, exam and MDM and agree with the assessment and plan as written. Based on total visit time, I have performed more than 50% of the visit. As above: Patient says her pain is slightly improved from presentation. Still mild lower midline tenderness. Continue antibiotics. Continue full liquid diet. Repeat CBC tomorrow. If doing well tomorrow likely discharge on oral antibiotics. Family says they have copies of previous workup of intra-abdominal cyst. This can be reviewed as an outpatient. Past Medical History Past Medical History: Hyperlipidemia Past Surgical History: Orthopedic Surgery Additional Past Surgical History / Comment(s): Bilat knee replacement Past Psychological History: No Psychological Hx Reported Smoking Status: Never smoker Past Alcohol Use History: Occasional Past Drug Use History: None Reported Medications and Allergies Home Medications Medication Instructions Recorded Confirmed Type Calcium (Unknown Strength) 1 dose PO DAILY 04/28/25 04/28/25 History Dicyclomine [Bentyl] 10 mg PO QID 04/28/25 04/28/25 History Temazepam [Restoril] 15 mg PO HS 04/28/25 04/28/25 History Zinc (Unknown Strength) 1 dose PO DAILY 04/28/25 04/28/25 History Allergies Allergy/AdvReac Type Severity Reaction Status Date / Time No Known Allergies Allergy Verified 04/28/25 09:47 Surgical - Exam Vital Signs Temp Pulse Resp BP Pulse Ox 98.1 F 82 18 138/84 98 04/28/25 06:52 04/28/25 06:52 04/28/25 06:52 04/28/25 06:52 04/28/25 06:52 Results - Labs 04/29/25 05:26 04/29/25 05:26 Abnormal Lab Results - Last 24 Hours (Table) 04/29/25 04/29/25 Range/Units 05:26 05:26 WBC 10.61 H (4.50-10.00) X 10*3/uL Neutrophils # 7.75 H (1.80-7.70) X 10*3/uL Monocytes # 1.01 H (0.20-1.00) X 10*3/uL Calcium 8.6 L (8.7-10.3) mg/dL Diabetes panel 04/29/25 Range/Units 05:26 Sodium 142 (135-145) mmol/L Potassium 4.9 (3.5-5.5) mmol/L Chloride 108 (96-109) mmol/L Carbon Dioxide 23.8 (21.6-31.8) mmol/L BUN 13.0 (9.0-27.0) mg/dL Creatinine 0.8 (0.6-1.5) mg/dL Glucose 78 (70-110) mg/dL Calcium 8.6 L (8.7-10.3) mg/dL Calcium panel 04/29/25 Range/Units 05:26 Calcium 8.6 L (8.7-10.3) mg/dL Pituitary panel 04/29/25 Range/Units 05:26 Sodium 142 (135-145) mmol/L Potassium 4.9 (3.5-5.5) mmol/L Chloride 108 (96-109) mmol/L Carbon Dioxide 23.8 (21.6-31.8) mmol/L BUN 13.0 (9.0-27.0) mg/dL Creatinine 0.8 (0.6-1.5) mg/dL Glucose 78 (70-110) mg/dL Calcium 8.6 L (8.7-10.3) mg/dL Adrenal panel 04/29/25 Range/Units 05:26 Sodium 142 (135-145) mmol/L Potassium 4.9 (3.5-5.5) mmol/L Chloride 108 (96-109) mmol/L Carbon Dioxide 23.8 (21.6-31.8) mmol/L BUN 13.0 (9.0-27.0) mg/dL Creatinine 0.8 (0.6-1.5) mg/dL Glucose 78 (70-110) mg/dL Calcium 8.6 L (8.7-10.3) mg/dL
[2025-04-29] MEDS ORDERED: FAMOTIDINE 20 MG/2 ML VIAL IV SCH (14:15)
[2025-04-29] MEDS: FAMOTIDINE 20 MG/2 ML VIAL IV SCH (20:56)
[2025-04-30 08:23] LABS: Basophils # (A) 0.05 X 10*3/uL (0.00-0.10); Basophils % (A) 0.7 %; Eosinophils # (A) 0.26 X 10*3/uL (0.04-0.35); Eosinophils % (A) 3.5 %; HCT 41.5 % (37.2-46.3); HGB 13.3 g/dL (12.0-15.0); Lymphocytes # (A) 1.63 X 10*3/uL (0.90-5.00); Lymphocytes % (A) 21.9 %; MCV 93.7 FL (80.0-97.0); Mean Platelet Volume 11.2 FL (9.5-12.2); Monocytes # (A) 0.74 X 10*3/uL (0.20-1.00); Monocytes % (A) 9.9 %; NRBC Per 100 WBC 0 X 10*3/uL (0.00-0.01); Neutrophils # (A) 4.75 X 10*3/uL (1.80-7.70); Neutrophils % (A) 63.7 %; Platelet Count 253 X 10*3/uL (140-440); RBC 4.43 X 10*6/uL (4.10-5.20); RDW 12.9 % (11.5-14.5); WBC 7.45 X 10*3/uL (4.50-10.00)
[2025-04-30 13:09] VITALS: BP 150/69; PULSE 68; RESP 20; TEMP 97.5
--- NOTE | 2025-04-30 14:32 | P.PN ---
Subjective Progress Note Date: 04/30/25 SURGICAL PROGRESS NOTE CHIEF COMPLAINT: Diverticulitis HISTORY OF PRESENT ILLNESS: Patient reports that she is feeling about the same. But she was able to tolerate diet. Her pain is controlled. She did have a small bowel movement. Denies any nausea or vomiting. Afebrile. WBC normal at 7.45. PHYSICAL EXAM: VITAL SIGNS: Reviewed. GENERAL: Well-developed in no acute distress. HEENT: No sclera icterus. Extraocular movements grossly intact. Moist buccal mucosa. Head is atraumatic, normocephalic. ABDOMEN: Soft. Nondistended. Mild tenderness with palpation suprapubic area NEUROLOGIC: Alert and oriented. Cranial nerves II through XII grossly intact. ASSESSMENT: 1. Acute sigmoid diverticulitis 2. 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 Signing provider agrees with the documented findings, assessment, and plan of care. I have personally seen and examined the patient, reviewed the SEAM STEAMER /PAs history, exam and MDM and agree with the assessment and plan as written. Based on total visit time, I have performed more than 50% of the visit. As above: Patient doing well today. Says her pain is improved. Tolerating diet. Having some loose stools. May discharge from our standpoint. Follow-up as outpatient. Antibiotics sent. Objective - Vital Signs Vital signs: Vital Signs Temp 97.5 F L 04/30/25 12:39 Pulse 68 04/30/25 12:39 Resp 20 04/30/25 12:39 BP 150/69 04/30/25 12:39 Pulse Ox 97 04/30/25 12:39 FiO2 Intake & Output 04/29/25 04/30/25 04/30/25 18:59 06:59 18:59 Weight 68.039 kg Other: Voiding Method Toilet # Voids 2 - Labs CBC & Chem 7: 04/30/25 06:15 04/29/25 05:26 Labs: Microbiology - Last 24 Hours (Table) 04/28/25 09:56 Blood Culture - Preliminary Blood
== END 2025-04-30 16:23 | disposition home or self-care (01) | DRG 392 ==
LOC: EC 06:49 → 4SSUR 12:27
PROVIDERS: ADMIT Internal Medicine; ATTEND Internal Medicine
PROC: 05HA33Z Insertion of Infusion Device into Left Brachial Vein, Percutaneous Approach (ICD-10-PCS; principal; 2025-04-30 11:35)
DX: K57.32 Diverticulitis of large intestine without perforation or abscess without bleeding (principal); E78.5 Hyperlipidemia, unspecified; N73.2 Unspecified parametritis and pelvic cellulitis; R19.09 Other intra-abdominal and pelvic swelling, mass and lump; Z79.899 Other long term (current) drug therapy; Z96.653 Presence of artificial knee joint, bilateral
CPT/HCPCS: 36410; 36415; 74177; 76937; 80048; 80053; 81003; 83605; 83690; 84145; 85025; 87040; 96361; 96365; 96366; 96372; 96375; 96376; 99285